=== PATIENT | male | born 1965 | race Hispanic/Latino ===

== ENCOUNTER 2018-06-21 19:47 | Inpatient (IN) | payer MEDICARE, OTHER ==
[~2018-06-21] VITALS: Ht 170.2 cm; Wt 72.7 kg
[~2018-06-21 19:47] MED LIST: CLON0.2T PO; FOLI1TAB85 PO; LABE200T5 PO; LOSA100T58 PO; MINO10TA3 PO; PRED20TA3 PO; VERA80TA5 PO
[2018-06-21 20:47] LABS: BASOPHILS % (AUTO) 0.7 % (0.0-5.0); EOSINOPHILS % (AUTO) 0.6 % (0.0-8.0); HEMATOCRIT 35.9 % (42-54); LYMPHOCYTES % (AUTO) 4.6 % (21.0-51.0); MEAN CORPUSCULAR HEMOGLOBIN 29.5 pg (27.0-33.0); MEAN CORPUSCULAR HGB CONC 31.6 g/dL (32.0-36.0); MEAN CORPUSCULAR VOLUME 93.5 fL (79-99); MONOCYTES % (AUTO) 7.5 % (3.0-13.0); NEUTROPHILS % (AUTO) 86.6 % (40.0-77.0); NUCLEATED RED BLOOD CELLS 0.1 % (0.0-0.19); PLATELET COUNT (AUTO) 165 K/uL (130-400); RED BLOOD CELL COUNT(AUTO) 3.84 MIL/uL (4.50-6.20); RED CELL DISTRIBUTION WIDTH 17.5 % (11.0-15.5); WHITE BLOOD COUNT (AUTO) 10.1 K/uL (4.8-10.8)
[2018-06-21 21:09] LABS: ALBUMIN 2.9 g/dL (3.5-5.0); CREATININE 4.4 mg/dL (0.5-1.5); POTASSIUM 3.7 mmol/L (3.5-5.1); TOTAL PROTEIN, SERUM 7.4 g/dL (6.0-8.3)
[2018-06-21] MEDS ORDERED: ZOSYN 3.375GM+NS 50ML 50 ML IV ONE (21:58)
[2018-06-21] MEDS ORDERED: INSULIN HUMULIN R 100 UNIT/ML 3ML ONE (21:59)
[2018-06-21] MEDS ORDERED: CEFTRIAXONE SODIUM 1 GM ONE (23:32)
[2018-06-21] MEDS ORDERED: PANTOPRAZOLE SODIUM 40 MG TABLET.DR PO ONE (23:33)
[2018-06-22] MEDS ORDERED: FLUCONAZOLE 200 MG/NS 100 ML 100 ML ONE (00:55)
[2018-06-22] MEDS ORDERED: ACETAMINOPHEN 325 MG TAB ONE (01:16)
[2018-06-22] MEDS ORDERED: HYDROCODONE/ACETAMINOPHEN 7.5/325 MG TAB ONE (01:43)
[2018-06-22 03:02] VITALS: BP 128/72
[2018-06-22] MEDS ORDERED: HYDROCODONE/ACETAMINOPHEN 10/325 MG TAB ONE (04:24)
[2018-06-22 08:25] LABS: MEAN CORPUSCULAR HEMOGLOBIN 30.5 pg (27.0-33.0); MEAN CORPUSCULAR HGB CONC 32.4 g/dL (32.0-36.0); MEAN CORPUSCULAR VOLUME 94.2 fL (79-99); PLATELET COUNT (AUTO) 164 K/uL (130-400); RED BLOOD CELL COUNT(AUTO) 3.61 MIL/uL (4.50-6.20); RED CELL DISTRIBUTION WIDTH 17.5 % (11.0-15.5); WHITE BLOOD COUNT (AUTO) 11.9 K/uL (4.8-10.8)
[2018-06-22 08:34] VITALS: BP 132/73
[2018-06-22 08:49] LABS: CREATININE 5.4 mg/dL (0.5-1.5); POTASSIUM 4.3 mmol/L (3.5-5.1)
[2018-06-22] MEDS ORDERED: GLUCAGON 1MG KIT 1 MG ML IM PRN (09:00)
[2018-06-22] MEDS ORDERED: SODIUM CHLORIDE 0.9% 10 ML VIAL IVP SCH (09:00)
[2018-06-22] MEDS ORDERED: ACETAMINOPHEN 325 MG TAB PO PRN (09:00)
[2018-06-22] MEDS ORDERED: ONDANSETRON HCL 4 MG/2 ML VIAL IVP PRN (09:00)
[2018-06-22] MEDS: PANTOPRAZOLE SODIUM 40 MG TABLET.DR PO SCH (09:00)
[2018-06-22] MEDS ORDERED: DEXTROSE 50%-WATER 50 ML DISP.SYRIN IV PRN (09:00)
[2018-06-22] MEDS ORDERED: FLUCONAZOLE 200 MG/NS 100 ML 50 ML IV SCH (09:15)
[2018-06-22] MEDS: HYDROCODONE/ACETAMINOPHEN 7.5/325 MG TAB PO PRN ×3 (10:17→21:48)
[2018-06-22] MEDS: CEFTRIAXONE SODIUM 1 GM IVP SCH (10:18)
[2018-06-22] MEDS: INSULIN R PO SS2 SQ SCH ×3 (10:46→21:00)
[2018-06-22 11:00] VITALS: BP 118/62
[2018-06-22] MEDS ORDERED: HYDRALAZINE HCL 20 MG/ML VIAL IV PRN (13:30)
[2018-06-22] MEDS ORDERED: COMPOUND IV REFRIGERATED 1 EACH IVSOLN MISC PRN (14:30)
[2018-06-22] MEDS ORDERED: VANCOMYCIN 1GM+NS 250ML 250 ML IV SCH (14:30)
[2018-06-22] MEDS ORDERED: VANCOMYCIN 1.75 GM in SODIUM CHLORIDE 0.9% 250 ML IV ONE (14:30)
[2018-06-22] MEDS ORDERED: VANCOMYCIN PROTOCOL PER PHARMACY IV SCH (14:30)
[2018-06-22 16:00] VITALS: BP 138/79
[2018-06-22] MEDS: CALCIUM ACETATE 667 MG CAPSULE PO SCH (16:21)
[2018-06-22] MEDS ORDERED: ZOSYN 3.375GM+NS 50ML 50 ML IV SCH (17:00)
[2018-06-22 20:00] VITALS: BP 143/86
[2018-06-22] MEDS: FLUCONAZOLE 200 MG/NS 100 ML 50 ML IV SCH (21:30)
[2018-06-22] MEDS: ZOSYN 3.375GM+NS 50ML 50 ML IV SCH ×2 (21:30→23:20)
[2018-06-23] VITALS: BP 132/80
[2018-06-23 04:00] VITALS: BP 131/58
[2018-06-23 04:47] LABS: HEMOGLOBIN A1C 11.8 % (4.0-6.0)
[2018-06-23 04:52] LABS: HEMATOCRIT 35.9 % (42-54); MEAN CORPUSCULAR HEMOGLOBIN 29.5 pg (27.0-33.0); MEAN CORPUSCULAR HGB CONC 31.2 g/dL (32.0-36.0); MEAN CORPUSCULAR VOLUME 94.4 fL (79-99); NUCLEATED RED BLOOD CELLS 0.3 % (0.0-0.19); PLATELET COUNT (AUTO) 161 K/uL (130-400); RED CELL DISTRIBUTION WIDTH 17.8 % (11.0-15.5); WHITE BLOOD COUNT (AUTO) 9.5 K/uL (4.8-10.8)
[2018-06-23 05:02] LABS: CREATININE 6.7 mg/dL (0.5-1.5); POTASSIUM 4.5 mmol/L (3.5-5.1)
[2018-06-23] MEDS: INSULIN R PO SS2 SQ SCH ×4 (07:30→20:48)
[2018-06-23 08:00] VITALS: BP 149/88
[2018-06-23] MEDS: CALCIUM ACETATE 667 MG CAPSULE PO SCH ×3 (08:00→17:00)
[2018-06-23] MEDS: HYDROCODONE/ACETAMINOPHEN 7.5/325 MG TAB PO PRN ×2 (08:24→13:44)
[2018-06-23] MEDS: PANTOPRAZOLE SODIUM 40 MG TABLET.DR PO SCH (08:24)
[2018-06-23] MEDS: FOLIC ACID/VITAMIN B COMP W-C 1 MG CAPSULE PO SCH (08:24)
[2018-06-23 11:00] VITALS: BP 140/79
[2018-06-23] MEDS: ZOSYN 3.375GM+NS 50ML 50 ML IV SCH ×2 (11:55→21:08)
[2018-06-23] MEDS: CEFTRIAXONE SODIUM 1 GM IVP SCH (11:56)
[2018-06-23 16:00] VITALS: BP 136/75
[2018-06-23] MEDS ORDERED: MORPHINE SULFATE 2 MG/ML 1ML SYG IM PRN (16:15)
[2018-06-23] MEDS ORDERED: NYSTATIN 30 GM CREAM.GM. TP PRN (17:00)
[2018-06-23] MEDS ORDERED: LIDOCAINE HCL 2% JELLY 5 ML TP PRN (17:00)
[2018-06-23] MEDS ORDERED: MUPIROCIN OINTMENT 22 GM TUBE TP PRN (17:00)
--- NOTE | 2018-06-23 18:46 | NUR ---
DC Plan Discussed dcp with patient. Denies having any HH or provider services. [facility] has crutches, walker, wheel chair, BP machine, glucometer. Goes to [facility] [place] Koffi DONAHUE on 3rd shift. Discussed snf IV ABX. Patient refusing PICC line at this time. [facility] would like to receive IV ABX with HD if possible. CM to continue to follow cultures and plan. CD Addendum: 06/23/18 at 1849 by AARON CARDONA CM Amended: Links added.
[2018-06-23 20:00] VITALS: BP 125/57
[2018-06-23] MEDS: FLUCONAZOLE 200 MG/NS 100 ML 50 ML IV SCH (20:09)
--- NOTE | 2018-06-23 20:45 | NUR ---
insulin coverage bs 288 , protocol coverage calls for 14 units ,pt stated ill only take 8units ," they gave me 10 units in ER FOR BS 400 + AND SHORTLY THEREAFTER my bs dropped to the 50's ,and i felt like crashing" as pe pt vehement request ,only 8 units given at this time ,will report to IN A.M. Addendum: 06/24/18 at 0251 by ALEC LOVE RN RN Amended: Links added.
[2018-06-23] MEDS: NYSTATIN-TRIAMCINOLONE CREAM 15 GM TP SCH (21:18)
[2018-06-23] MEDS: MUPIROCIN OINTMENT 22 GM TUBE TP SCH (21:18)
[2018-06-23] MEDS: LIDOCAINE HCL 2% JELLY 5 ML TP SCH (21:18)
[2018-06-24] VITALS: BP 124/83
[2018-06-24 04:00] VITALS: BP 145/82
[2018-06-24 05:30] LABS: HEMATOCRIT 34.3 % (42-54); MEAN CORPUSCULAR HEMOGLOBIN 31.5 pg (27.0-33.0); MEAN CORPUSCULAR HGB CONC 33.7 g/dL (32.0-36.0); MEAN CORPUSCULAR VOLUME 93.3 fL (79-99); NUCLEATED RED BLOOD CELLS 0.1 % (0.0-0.19); PLATELET COUNT (AUTO) 184 K/uL (130-400); RED BLOOD CELL COUNT(AUTO) 3.68 MIL/uL (4.50-6.20); RED CELL DISTRIBUTION WIDTH 18.1 % (11.0-15.5); WHITE BLOOD COUNT (AUTO) 10.6 K/uL (4.8-10.8)
[2018-06-24 05:36] LABS: CREATININE 5.5 mg/dL (0.5-1.5); POTASSIUM 4.2 mmol/L (3.5-5.1)
[2018-06-24] MEDS: LIDOCAINE HCL 2% JELLY 5 ML TP SCH ×3 (06:08→21:19)
[2018-06-24] MEDS: INSULIN R PO SS2 SQ SCH ×2 (06:25→11:39)
--- NOTE | 2018-06-24 06:32 | NUR ---
MED REFUSAL BS212, ASYMPTOMATIC OTHERWISE, REFUSED INSULIN COVERAGE AT THIS TIME,EXPLAINED TO PT ,WILL INQUIRE FROM MD. TO CHANGE SS SCALE TO 2 COVERAGE. Addendum: 06/24/18 at 0634 by ALEC LOVE RN RN Amended: Links added.
[2018-06-24 08:00] VITALS: BP 156/94
[2018-06-24] MEDS: ZOSYN 3.375GM+NS 50ML 50 ML IV SCH ×2 (09:34→21:17)
[2018-06-24] MEDS: FOLIC ACID/VITAMIN B COMP W-C 1 MG CAPSULE PO SCH (09:34)
[2018-06-24] MEDS: CALCIUM ACETATE 667 MG CAPSULE PO SCH ×3 (09:34→16:35)
[2018-06-24] MEDS: CEFTRIAXONE SODIUM 1 GM IVP SCH (09:34)
[2018-06-24] MEDS: PANTOPRAZOLE SODIUM 40 MG TABLET.DR PO SCH (09:34)
[2018-06-24] MEDS: MUPIROCIN OINTMENT 22 GM TUBE TP SCH ×3 (09:35→21:18)
[2018-06-24] MEDS: NYSTATIN-TRIAMCINOLONE CREAM 15 GM TP SCH ×3 (09:35→21:18)
[2018-06-24 11:00] VITALS: BP 145/83
--- NOTE | 2018-06-24 14:00 | NUR ---
Notified Dr. Chang of BS 367, pt. refuses full dose of insulin, did have episodes where BS had dropped after getting insulin. Received orders for 1/2 SS insulin.
[2018-06-24] MEDS: VANCOMYCIN 1.25 GM in SODIUM CHLORIDE 0.9% 250 ML IV SCH (14:30)
[2018-06-24 16:00] VITALS: BP 138/82
[2018-06-24] MEDS: INSULIN HUMULIN R 100 UNIT/ML 3ML SQ SCH ×2 (16:30→21:00)
[2018-06-24 19:00] VITALS: BP 146/83
--- NOTE | 2018-06-24 19:58 | NUR ---
phys. exam pt continues to refuse penile area to be reexamined for documentation purposes, stated "everything's ok ,nothing unusual" Addendum: 06/25/18 at 0614 by ALEC LOVE RN RN Amended: Links added.
[2018-06-24] MEDS: FLUCONAZOLE 200 MG/NS 100 ML 50 ML IV SCH (21:17)
--- NOTE | 2018-06-24 21:30 | NUR ---
med refusal pt refused repeatedly 1/2 ss coverage for bs 235, pt states"i feel good ,i dont need insulin right now " will monitor pt closely Addendum: 06/24/18 at 2201 by ALEC LOVE RN RN Amended: Links added.
[2018-06-25] VITALS: BP 145/85
[2018-06-25] MEDS ORDERED: FOLI1TAB85 PO (03:48)
[2018-06-25] MEDS ORDERED: LABE300T2 PO (03:48)
[2018-06-25] MEDS ORDERED: CLON0.2T PO (03:48)
[2018-06-25] MEDS ORDERED: LANT1000 PO (03:48)
[2018-06-25] MEDS ORDERED: VERA80TA5 PO (03:48)
[2018-06-25] MEDS ORDERED: LOSA100T58 PO (03:48)
[2018-06-25 04:00] VITALS: BP 152/79
[2018-06-25] MEDS: LIDOCAINE HCL 2% JELLY 5 ML TP SCH ×3 (05:40→20:43)
--- NOTE | 2018-06-25 06:02 | NUR ---
bs 203 pt denies acute discomfort, refuse insulin coverage this a.m. despite reassurance and explanation (06/07 ss coverage). will decide later post bkfst Addendum: 06/25/18 at 0604 by ALEC LOVE RN RN Amended: Links added.
[2018-06-25] MEDS: INSULIN HUMULIN R 100 UNIT/ML 3ML SQ SCH ×4 (06:34→21:00)
[2018-06-25 08:00] VITALS: BP 138/76
--- NOTE | 2018-06-25 09:00 | NUR ---
PENILE GANGRENE PT REFUSED PENIS ASSESSMENT FOR INSPECTION OF GANGRENE. REFUSED TOPICAL CREAM TO BE APPLIED BY ANYONE OTHER THAN HIMSELF. AWARE. Addendum: 06/25/18 at 1805 by LOCO KELLEY RN RN Amended: Links added.
--- NOTE | 2018-06-25 09:00 | NUR ---
BM PRUNE JUICE OFFERED. PT REFUSED AND STATED HE HAD JUST HAD A BM DESCRIBING IT NORMAL, BROWN. BM NOT SEEN. BM DOCUMENTED PER PATIENT DESCRIPTION. PREVIOUS BM ON 06/21/18. WILL CONTINUE TO MONITOR PT CLOSELY. Addendum: 06/25/18 at 1805 by LOCO KELLEY RN RN Amended: Links added.
[2018-06-25] MEDS: FOLIC ACID/VITAMIN B COMP W-C 1 MG CAPSULE PO SCH (10:00)
[2018-06-25] MEDS: PANTOPRAZOLE SODIUM 40 MG TABLET.DR PO SCH (10:00)
[2018-06-25] MEDS: CALCIUM ACETATE 667 MG CAPSULE PO SCH ×4 (10:00→16:19)
[2018-06-25] MEDS: CEFTRIAXONE SODIUM 1 GM IVP SCH (10:00)
[2018-06-25] MEDS: NYSTATIN-TRIAMCINOLONE CREAM 15 GM TP SCH ×3 (10:01→20:42)
[2018-06-25] MEDS: ZOSYN 3.375GM+NS 50ML 50 ML IV SCH ×2 (10:01→20:38)
[2018-06-25] MEDS: MUPIROCIN OINTMENT 22 GM TUBE TP SCH ×3 (10:01→20:43)
[2018-06-25 11:00] VITALS: BP 154/76
[2018-06-25] MEDS: VERAPAMIL HCL 80 MG TABLET PO SCH ×2 (14:19→20:38)
[2018-06-25 16:00] VITALS: BP 116/77
[2018-06-25] MEDS: LANTHANUM CARBONATE 2000 MG PO SCH (17:00)
[2018-06-25 19:00] VITALS: BP 127/72
[2018-06-25] MEDS: FLUCONAZOLE 200 MG/NS 100 ML 50 ML IV SCH (19:44)
[2018-06-25] MEDS: CLONIDINE HCL 0.2 MG TABLET PO SCH (20:43)
--- NOTE | 2018-06-25 21:05 | NUR ---
refusal for insulin coverage bs254 ,requires 5units coverage REG insulin per 1/2 ss, pt refuses administration, stated im ok , i am aware of your protocol but i dont need it right now ,reason imparted on compliance to regimen, verbalized understanding. no acute signs of hyperglycemic rxn Addendum: 06/25/18 at 2109 by ALEC LOVE RN RN Amended: Links added.
[2018-06-26] VITALS (7 sets, daily range): BP systolic 96–155; BP diastolic 53–83
[2018-06-26] MEDS: LIDOCAINE HCL 2% JELLY 5 ML TP SCH ×3 (05:50→22:00)
[2018-06-26] MEDS: INSULIN HUMULIN R 100 UNIT/ML 3ML SQ SCH ×4 (07:30→21:00)
[2018-06-26] MEDS: LANTHANUM CARBONATE 2000 MG PO SCH ×3 (08:00→17:00)
[2018-06-26] MEDS: CLONIDINE HCL 0.2 MG TABLET PO SCH ×3 (09:00→22:42)
[2018-06-26] MEDS: CALCIUM ACETATE 667 MG CAPSULE PO SCH ×3 (12:00→17:30)
[2018-06-26] MEDS: VERAPAMIL HCL 80 MG TABLET PO SCH ×3 (12:08→22:42)
[2018-06-26] MEDS: PANTOPRAZOLE SODIUM 40 MG TABLET.DR PO SCH (12:08)
[2018-06-26] MEDS: FOLIC ACID/VITAMIN B COMP W-C 1 MG CAPSULE PO SCH (12:08)
[2018-06-26] MEDS: ZOSYN 3.375GM+NS 50ML 50 ML IV SCH ×2 (12:09→22:41)
[2018-06-26] MEDS: MUPIROCIN OINTMENT 22 GM TUBE TP SCH ×3 (12:12→21:00)
[2018-06-26] MEDS: NYSTATIN-TRIAMCINOLONE CREAM 15 GM TP SCH ×3 (12:12→21:00)
--- NOTE | 2018-06-26 14:51 | NUR ---
ILIA Note: [employer] pending ins auth Spoke to Jesusita griggs/Raphael Winslow, received updated clinicals and pasrr. Pt pending ins auth. Primary nurse aware. CM to cont to follow up.
[2018-06-26] MEDS: VANCOMYCIN 1.25 GM in SODIUM CHLORIDE 0.9% 250 ML IV SCH (18:22)
[2018-06-26] MEDS: FLUCONAZOLE 200 MG/NS 100 ML 50 ML IV SCH (22:41)
[2018-06-27 03:19] VITALS: BP 130/78
[2018-06-27] MEDS: INSULIN HUMULIN R 100 UNIT/ML 3ML SQ SCH ×2 (05:39→11:30)
[2018-06-27] MEDS: LIDOCAINE HCL 2% JELLY 5 ML TP SCH ×2 (05:39→14:30)
[2018-06-27 07:42] VITALS: BP 120/64
[2018-06-27] MEDS: CALCIUM ACETATE 667 MG CAPSULE PO SCH ×2 (07:48→12:00)
[2018-06-27] MEDS: LANTHANUM CARBONATE 2000 MG PO SCH ×2 (07:50→12:00)
[2018-06-27] MEDS: CLONIDINE HCL 0.2 MG TABLET PO SCH (09:00)
[2018-06-27] MEDS: MUPIROCIN OINTMENT 22 GM TUBE TP SCH ×2 (10:05→14:30)
[2018-06-27] MEDS: PANTOPRAZOLE SODIUM 40 MG TABLET.DR PO SCH (10:05)
[2018-06-27] MEDS: VERAPAMIL HCL 80 MG TABLET PO SCH ×2 (10:05→14:29)
[2018-06-27] MEDS: NYSTATIN-TRIAMCINOLONE CREAM 15 GM TP SCH ×2 (10:05→14:30)
[2018-06-27] MEDS: FOLIC ACID/VITAMIN B COMP W-C 1 MG CAPSULE PO SCH (10:05)
[2018-06-27] MEDS: ZOSYN 3.375GM+NS 50ML 50 ML IV SCH (10:05)
[2018-06-27 11:55] VITALS: BP 131/68
--- NOTE | 2018-06-27 12:02 | NUR ---
CM Note: [employer] pending ins auth Spoke to Jesusita griggs/Raphael Winslow pt pending ins auth. Primary nurse aware. CM to cont to follow up.
--- NOTE | 2018-06-27 13:10 | NUR ---
ILIA Note: [employer] ins auth and acceptance Spoke to Jesusita griggs/[employer]. Pt has ins auth and acceptance. May transfer via [employer] [facility] van. Primary nurse made aware. CM to cont to follow up.
--- NOTE | 2018-06-27 13:33 | NUR ---
PATIENT ACCEPTED TO [facility] NOTIFIED TO COPY CHART. PATIENT INFORMED OF ACCEPTANCES
[2018-06-27] MEDS ORDERED: VANCOMYCIN 750MG + NS 250 ML IV SCH ×2 (14:30)
--- NOTE | 2018-06-27 17:30 | NUR ---
PATIENT GIVEN DISCHARGE INSTRUCTION , REPORT CALLED TO [facility] AND PATIENT LEFT WITH BUSINESS PERFORMANCE ANALYST FROM [facility].
--- NOTE | 2018-06-27 18:20 | NUR ---
PATIENT GIVEN DISCHARGE INSTRUCTION AND VERBALIZED UNDERSTANDING, I V D/C AND PATIENT AND PATIENT INSTRUCTED TO FOLLOW-UP WITH [facility]A IN ONE WEEK AND TO FOLLOW-UP WITH DR CHAVEZ 1-2 WEEKS CALL FOR APPOINTMENT OFFICE CLOSE NOW. NO QUESTIONS OR CONCERNS AT THIS TIME REMINDED NOT TO TAKE ASPIRIN TILL DR CHAVEZ GIVES HIM THE OK. Addendum: 06/27/18 at 2034 by TETE BULLOCK RN RN CHARTED ON WRONG PATIENT
== END 2018-06-27 17:00 | DRG 871 ==
LOC: EDH 19:47 → OBSVTOIN 23:00 → EDHIP 23:00 → 4CH 06-22 02:25
PROVIDERS: ADMIT Internal Medicine Critical Care Medicine; ATTEND Internal Medicine Critical Care Medicine
PROC: 5A1D70Z Performance of Urinary Filtration, Intermittent, Less than 6 Hours Per Day (ICD-10-PCS; principal; 2018-06-23)
PROC: 5A1D70Z Performance of Urinary Filtration, Intermittent, Less than 6 Hours Per Day (ICD-10-PCS; 2018-06-27)
DX: A41.9 Sepsis, unspecified organism (principal); N18.6 End stage renal disease; I12.0 Hypertensive chronic kidney disease with stage 5 chronic kidney disease or end stage renal disease; R65.20 Severe sepsis without septic shock; E11.21 Type 2 diabetes mellitus with diabetic nephropathy; E11.22 Type 2 diabetes mellitus with diabetic chronic kidney disease; F12.90 Cannabis use, unspecified, uncomplicated; N48.29 Other inflammatory disorders of penis; D63.1 Anemia in chronic kidney disease; E11.65 Type 2 diabetes mellitus with hyperglycemia; Z83.3 Family history of diabetes mellitus; Z82.49 Family history of ischemic heart disease and other diseases of the circulatory system; Z82.5 Family history of asthma and other chronic lower respiratory diseases; Z82.0 Family history of epilepsy and other diseases of the nervous system; Z82.3 Family history of stroke; Z99.2 Dependence on renal dialysis; Z91.19 Patient's noncompliance with other medical treatment and regimen
CPT/HCPCS: 36415; 74176; 80048; 80053; 80202; 82948; 83036; 83605; 83735; 85025; 85027; 87040; 87070; 87076; 87077; 87186; 90935; 93005; A4218; G0378; J0696; J1450; J1815; J2543; J3370; J7030

== ENCOUNTER 2018-09-12 15:24 | Emergency (ER) | payer OTHER ==
[~2018-09-12 15:24] MED LIST changes: -LABE200T5 PO; +LABE300T2 PO; +LANT1000 PO; -MINO10TA3 PO; -PRED20TA3 PO
[2018-09-12] MEDS ORDERED: CALCIUM CHLORIDE 100 MG/ML 10 ML SYG IVP ONE (15:25)
[2018-09-12] MEDS ORDERED: EPINEPHRINE 0.1 MG/ML 10 ML SYG IVP ONE (15:25)
== END 2018-09-12 17:38 | disposition expired ==
LOC: EDH 15:24
DX: I46.9 Cardiac arrest, cause unspecified (principal); E11.22 Type 2 diabetes mellitus with diabetic chronic kidney disease; I12.0 Hypertensive chronic kidney disease with stage 5 chronic kidney disease or end stage renal disease; N18.6 End stage renal disease; Z99.2 Dependence on renal dialysis
CPT/HCPCS: 92950; 99291; J0171; J3490